=== PATIENT | female | born 1955 | race Two or more races ===

== ENCOUNTER 2016-09-04 14:07 | Day surgery (SDC) | payer BC ==
[~2016-09-04] VITALS: Ht 165.1 cm; Wt 74.5 kg
[2016-09-04] MEDS ORDERED: IBUPROFEN (15:23)
[2016-09-04] MEDS ORDERED: ZOLOFT (15:23)
[2016-09-04] MEDS ORDERED: [UNRECOGNIZED DRUG - OTHER] (15:23)
[2016-09-04] MEDS ORDERED: PROPRANOLOL (15:23)
[2016-09-04] MEDS ORDERED: OYSTER SHELL CALCIUM (15:23)
[2016-09-04] MEDS ORDERED: ASPIRIN (15:24)
[2016-09-04 15:27] VITALS: Ht 165.1 cm; Wt 74.5 kg
[2016-09-04 15:56] VITALS: BP 113/73; PULSE 74; RESP 18
[2016-09-04] MEDS ORDERED: PROPOFOL 40 ML ONE (16:04)
[2016-09-04] MEDS ORDERED: LIDOCAINE 2% (SDV) 5 ML INJ ONE (16:04)
[2016-09-04 17:35] VITALS: BP 108/69; PULSE 56; RESP 18
--- NOTE | 2016-09-05 06:11 | GILP ---
DATE OF PROCEDURE: 09/04/2016 PROCEDURE: Colonoscopy to cecum. BRIEF HISTORY AND INDICATIONS: The patient here for colorectal cancer screening. PREMEDICATION: Monitored anesthesia care by anesthesiologist. SURGEON: Alvaro Dunn MD. INSTRUMENT USED: Olympus colonoscope. PREPARATION: Poor. TECHNIQUE: After informed consent, with the patient/relatives understanding the procedure, its indic ations potential risks and complications, including but not limited to: allergic reaction, bleeding, perforation, infection, missed lesions and after all pertinent questions were answered to the patie nt's satisfaction, the patient/relatives signed the witnessed informed consent. Following this, premedication was administered slowly IV push by under careful cardiovascular and re spiratory monitoring with pulse oximetry, automatic blood pressure and ekg monitor tech. Once the sedativ e effect was achieved, the patient was placed in the left lateral decubitus position, digital rectal examination was performed. The colonoscope was then introduced and advanced under visual control th roughout all segments of the colon including: the rectum, sigmoid, descending colon, splenic flexure , transverse colon, hepatic flexure, ascending colon and finally reaching the cecum which was clearl y identified by transillumination, finger indentation and the ileocecal valve. Careful examination o f the mucosa of the lower gastrointestinal tract both on insertion as well as withdrawal of the inst rument disclosed the following findings: Rectal Examination: No evidence of perirectal disease, no masses. Colonic Mucosa: The colonic mucosa is evaluated but is obscured at least 50% due to semi-solid stoo l. No gross lesions are identified. The instrument was withdrawn reexamining the mucosa in detail. No additional abnormalities are noted. IMPRESSION: 1. Poor preparation renders this examination suboptimal. 2. No gross lesions. 3. Moderate size internal hemorrhoids. PLAN: Repeat colonoscopy in 1 year. Dictated By: ALVARO DUNN MS/NUBIA Conf#: [id number] DID#: [id number]
== END 2016-09-04 18:34 | disposition home or self-care (01) ==
LOC: GIL 14:07
PROVIDERS: ATTEND Internal Medicine Gastroenterology
DX: Z12.11 Encounter for screening for malignant neoplasm of colon (principal); K64.8 Other hemorrhoids; E03.9 Hypothyroidism, unspecified; I10 Essential (primary) hypertension; E66.9 Obesity, unspecified; Z68.27 Body mass index [BMI] 27.0-27.9, adult; E78.5 Hyperlipidemia, unspecified
CPT/HCPCS: 45378; Z7610